=== PATIENT | female | born 1950 | race Caucasian/White ===

== ENCOUNTER → 2017-03-25 | Outpatient (CLI) | payer MEDICARE ==
[~2017-03-25] MED LIST: MINOCYCLINE 10100 MG PO; PREDNISONE 20MG20 MG PO
--- NOTE | 2017-03-27 11:44 | RADIOLOGY REPORT PS360 ---
DIG MAMM- STEVE ADD VIEWS W/CAD, US BREAST-RT COMPLETE W/AXILLA, US BREAST-LT COMPLETE W/AXILLA COMPARISON: 02/27/2017 INDICATION: Follow-up abnormal mammogram ORDERING PHYSICIAN: Patricio Araujo MD PATIENT AGE: 66 years TECHNIQUE: Spot compression views and bilateral breast ultrasound FINDINGS: Right breast: There are several benign-appearing nodules in the right breast. No malignant appearing nodules or masses are evident. Some of these nodules may correspond to the ultrasound abnormalities as described below. Right breast ultrasound: 4 mm cyst at 12:00, 4 mm hypoechoic area probably related to a cyst at 1:00, 4 mm cyst at 8:00, complex 8 mm cyst at 9:00 likely related to the larger nodule which is labeled as B on the radius exam. At 11:00 there is a 4 mm hypoechoic nodule probably related to complex cyst. 3 mm hypoechoic nodule at 10:00 probably related to a cyst. Additional 5 mm cyst at 10:00. Scattered small nodes are present in the right axilla Left mammogram: There is persistent nodular density in the outer aspect of the left breast probably corresponding to a 5 mm cyst seen on the left breast ultrasound. The lafleur are slightly thickened. Other benign-appearing nodules are also present in the retroareolar region. No malignant appearing mass or malignant appearing microcalcification is evident. The largest nodule is approximately 8 mm in the retroareolar region. Left breast ultrasound: There are multiple cysts present including a complex cyst at 1:00 5 mm, 8 x 2 mm complex cyst at 1:00 near the nipple, 4 mm cyst at 1:00, 5 mm cyst at 2:00 near the nipple, 3 mm cyst at 6:00 near the nipple, 7 mm complex cyst at 10:00 near the nipple, 6 mm complex cyst behind the nipple. Scattered small nodes are present in the left axilla. IMPRESSION: Multiple bilateral nodular lesions probably benign. Probably corresponding to simple and complex cysts BI-RADS CATEGORY: 3_Probably Benign-Short Term F/U RECOMMENDED FOLLOWUP: 6 month mammographic and sonographic follow-up (A letter has been sent to the patient regarding results of the study.)
== END ==
LOC: RAD 11:03
DX: R92.8 Other abnormal and inconclusive findings on diagnostic imaging of breast (principal)
CPT/HCPCS: G0204